=== PATIENT | female | born 1985 | race Caucasian/White ===

== ENCOUNTER 2016-10-25 18:00 | Inpatient (IN) | payer OTHER ==
--- NOTE | ~2016-10-25 | HP ---
Unit #: [id number] #: [id number] Patient: SWATI NAYAK [id number] [place] [address] [id number] MR#: [id number] NAME: SWATI NAYAK ROOM: [facility] Age: 31 Sex: F Admission Date: 10/25/2016 : 1985 Attending Physician: Jamey Garvey M.D. Admitting Physician: Jamey Garvey M.D. Primary Care Physician: No Primary Care Physician HISTORY AND PHYSICAL HISTORY OF PRESENT ILLNESS Swati is a 31-year-old admitted to [facility] because of her continued abuse of benzodiazepines. She has had other admissions to this facility for the same. PAST MEDICAL HISTORY 1. Long history of benzodiazepine abuse. 2. COPD. PAST SURGICAL HISTORY 1. Pelvis lap. 2. Oral. ALLERGIES Sulfa. SOCIAL HISTORY Smokes one pack per day. Denies alcohol. Admits to a long history of opioid abuse and benzodiazepine abuse. FAMILY HISTORY Medically noncontributory. REVIEW OF SYSTEMS CONSTITUTIONAL: No fever or chills. HEENT: Denies any sore throat, ear pain or runny nose. CARDIOVASCULAR: Denies chest pain, irregular heart rhythm or palpitations. CHEST: Denies shortness of breath or cough. No hemoptysis. GASTROINTESTINAL: Denies nausea, vomiting, diarrhea or chronic constipation. ENDOCRINE: Denies history of increased thirst or urination. No recent significant weight loss or gain. GENITOURINARY: Denies dysuria, frequency, or hematuria. SKIN: Denies any rashes. HEMATOLOGIC: Denies history of increased bleeding or bruising. MUSCULOSKELETAL: Denies any hot, swollen joints. No generalized muscle pain. NEUROLOGIC: Denies problems with vision or speech. No frequent, severe headaches. No numbness, tingling or weakness in any extremities. Denies loss of bladder or bowel control. CURRENT MEDICATIONS 1. Detox protocol. Unit #: [id number] #: [id number] Patient: SWATI NAYAK 2. Minipress 1 mg q.h.s. 3. RisperDAL 2 mg q.a.m. and 4 mg q.h.s. 4. Remeron 15 mg q.h.s. 5. Claritin 10 mg daily. 6. Celexa 20 mg every day. 7. Neurontin 800 mg q.i.d. PHYSICAL EXAMINATION GENERAL: Alert, well nourished, and in no apparent distress. VITAL SIGNS: Blood pressure 100/56, heart rate 80, respirations 16, temperature 98.6, weight 113 pounds, and height 5 feet, 3 inches. SKIN: Warm and dry without rash or lesion. HEENT: Normocephalic. TMs not viewed. Oral and nasal passages clear. Conjunctivae clear. PERRLA. EOMs intact. NECK: Supple without lymphadenopathy or thyromegaly. HEART: Regular rate and rhythm without murmur. LUNGS: Clear. ABDOMEN: Soft, nontender. : Not done. EXTREMITIES: No evidence of cyanosis, clubbing or edema. Moves all without focal deficit. NEUROLOGICAL: Grossly within normal limits. Cranial Nerves: II: Visual phipps are intact. III, IV AND : Extraocular movements are intact. Pupils are equal, round and reactive to light. V: Facial sensation is grossly normal. VII: Facial movements and expression are normal. VIII: Auditory acuity grossly intact. IX, X: Uvula is midline. Phonation is normal. XI: Patient shrugs shoulders and turns head normally. XII: Tongue protrudes in the midline. Sensory and Motor Function: Sensory and motor sensation is grossly normal. Motor: moves all extremities well. Coordination: Gait is normal. Deep Tendon Reflexes: Intact. IMPRESSION Psychiatric admission. RECOMMENDATIONS PSYCHIATRIC: Per psychiatrist. MEDICAL: I see no contraindication to participating in facility's activities. MEDICAL PROGNOSIS Good. MEDICAL CONDITION Stable. Dictated by... Linda Paz P.A.-C. for Slava Porter/ganesh TD: 10/27/2016 08:36 JOB #: [id number] Unit #: [id number] #: [id number] Patient: SWATI NAYAK HISTORY AND PHYSICAL Page 1 of 1 X Linda Paz HISTORY AND PHYSICAL
--- NOTE | ~2016-10-25 | DS ---
Unit #: [id number] #: [id number] Patient: SWATI NAYAK [id number] [facility] [address] [place] [address] [id number] I MR#: [id number] NAME: SWATI NAYAK ROOM: [facility] Age: 31 Sex: F Admission Date: 10/25/2016 : 1985 Discharge Date: 10/28/2016 Attending Physician: Jamey Garvey M.D. DISCHARGE SUMMARY REASON FOR ADMISSION Swati is a 31-year-old woman who reported she had taken an overdose of benzodiazepines in a suicide attempt. She was admitted for further stabilization. DIAGNOSTIC STUDIES LABORATORY RESULTS: Beta-hCG was negative, other labs were within normal limits. HOSPITAL COURSE The patient was admitted and placed on suicide precautions. Risperdal 2 mg in the morning and 4 mg at bedtime, citalopram 20 mg daily, Remeron 15 mg at bedtime, and Minipress 1 mg at bedtime were restarted. She had a brief period of inpatient detox with no evidence of detox symptoms and denied suicidal ideation, intent, or plan after admission. She was able to contract for safety with no further thoughts of harming herself. DISCHARGE DIAGNOSES AXIS I: Bipolar depressed, benzodiazepine dependence, and cannabis dependence. AXIS II: Borderline and antisocial traits. AXIS III: History of endometriosis. AXIS IV: AXIS V: DISCHARGE INSTRUCTIONS Follow up with [facility] for medication management and psychotherapy. DISCHARGE MEDICATIONS Celexa 20 mg daily for depression, Risperdal 2 mg in the morning and 4 mg at bedtime for mood stability, Minipress 1 mg at bedtime for nightmares, Neurontin 800 mg q.i.d. for anxiety, Remeron 15 mg at bedtime for sleep, Claritin 10 mg daily for seasonal allergies. CONDITION AT DISCHARGE Improved. PROGNOSIS Fair to good. DIET AND ACTIVITY Ad dilip. Unit #: [id number] #: [id number] Patient: SWATI NAYAK Dictated by... Slava Cheatham/rony TD: 10/28/2016 13:59 JOB #: [id number] DISCHARGE SUMMARY Page 1 of 1 X Jamey Garvey MD DISCHARGE SUMMARY
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
[~2016-10-25 18:00] MED LIST: BIRTH CONTROL PILL; DEPAKOTE ER PO; SEROQUEL PO
[2016-10-26 09:49] LABS: BASOPHIL% 0.3 % (0-2.5); EOSINOPHIL# 0.2 X10e3 (0-0.7); EOSINOPHIL% 3.5 % (0.0-7.0); HEMATOCRIT 40.3 % (35.0-45.0); HEMOGLOBIN 13.5 gm/dL (12.0-16.0); LYMPHOCYTE# 2.1 X10e3 (1.0-3.5); LYMPHOCYTE% 31.5 % (17.0-45.0); MEAN CELL VOLUME 91.7 FL (83-96); MEAN CORPUSCULAR HEMOGLOBIN 30.7 PG (28-34); MEAN CORPUSCULAR HGB CONC 33.5 g/dL (30-36); MEAN PLATELET VOLUME 10.7 FL (6.5-11.5); MONOCYTE# 0.6 X10e3 (0-1.0); MONOCYTE% 8.2 % (3.0-12.0); NEUTROPHIL# 3.8 X10e3 (1.5-7.1); NEUTROPHIL% 56.5 % (40-75); PLATELET COUNT 151 X10e3 (140-420); RED CELL DISTRIBUTION WIDTH 13.1 % (11.0-15.5); WHITE BLOOD COUNT 6.7 X10e3 (4.0-10.5)
[2016-10-26 10:00] LABS: DIFF IND NO
[2016-10-26 10:21] LABS: ALBUMIN SERUM 3.8 g/dL (3.5-5.0); BILIRUBIN,TOTAL 0.4 mg/dL (0.2-2.0); BUN/CREATININE RATIO 16.66; CALCIUM SERUM 8.9 mg/dL (8.4-10.2); CREATININE SERUM 0.9 mg/dL (0.6-1.4); GLOM FILT RATE Estimated 84.7 mL/min (>60); POTASSIUM 4.1 mmol/L (3.5-5.1)
== END 2016-10-28 14:22 | disposition home or self-care (01) | DRG 885 ==
LOC: P1E 22:37
PROVIDERS: Psychiatry & Neurology Psychiatry
PROC: HZ2ZZZZ Detoxification Services for Substance Abuse Treatment (ICD-10-PCS; principal; 2016-10-25)
DX: F31.9 Bipolar disorder, unspecified (principal); F11.20 Opioid dependence, uncomplicated; Z88.2 Allergy status to sulfonamides; J44.9 Chronic obstructive pulmonary disease, unspecified; F17.210 Nicotine dependence, cigarettes, uncomplicated; F12.20 Cannabis dependence, uncomplicated; F60.3 Borderline personality disorder; F60.2 Antisocial personality disorder
CPT/HCPCS: 80053; 84703; 85025